=== PATIENT | male | born 1955 | race Caucasian/White ===

== ENCOUNTER 2023-10-06 12:10 | Emergency (ER) | payer MEDICARE ==
[~2023-10-06] VITALS: Ht 172.7 cm; Wt 54.6 kg
[2023-10-06] MEDS: NORCO, ANEXSIA 5/325MG TABLET (HYDROcodone/ACETAMINOPHEN) PO ONE (16:56)
[2023-10-06 20:01] VITALS: BP 129/66; TEMP 98.9; O2SAT 90
== END 2023-10-06 21:33 | disposition home or self-care (01) ==
LOC: M ED 12:10 → EDBD 12:10 → M ED 21:33
DX: N35.919 Unspecified urethral stricture, male, unspecified site (principal); T83.022A Displacement of nephrostomy catheter, initial encounter; Z85.528 Personal history of other malignant neoplasm of kidney; N20.9 Urinary calculus, unspecified; N13.30 Unspecified hydronephrosis; J90 Pleural effusion, not elsewhere classified; I51.9 Heart disease, unspecified; F17.200 Nicotine dependence, unspecified, uncomplicated; Z79.899 Other long term (current) drug therapy